=== PATIENT | female | born 1980 | race Caucasian/White ===

== ENCOUNTER 2017-10-11 07:26 | Day surgery (SDC) | payer OTHER ==
[2017-10-10 13:32] VITALS: BMI 28.7
--- NOTE | 2017-10-11 09:01 | HP ---
History & Physical Update - History History: No Change - Physical Physical: No Change - Assessment Assessment: No Change - Plan Plan: No Change (No changes to H&P since 10/06/17 Consent signed and witnessed)
[2017-10-11] MEDS ORDERED: oxyCODONE HCL 5 MG TABLET PO PRN ×2 (09:21→09:38)
[2017-10-11] MEDS ORDERED: PROMETHAZINE HCL 25 MG/1 ML VIAL IVPUSH PRN (09:21)
[2017-10-11] MEDS ORDERED: ONDANSETRON 4 MG/2 ML VIAL IVPUSH PRN ×2 (09:21→09:38)
[2017-10-11] MEDS ORDERED: LACTATED RINGERS SOLUTION 1,000 ML IV SCH (09:30)
[2017-10-11] MEDS ORDERED: MIDAZOLAM HCL 2 MG/2 ML SINGLE DOSE VIAL ONE (09:36)
[2017-10-11] MEDS ORDERED: PROPOFOL 20 ML ONE (09:36)
[2017-10-11] MEDS ORDERED: SUCCINYLCHOLINE CHLORIDE 200 MG/10 ML VIAL ONE (09:37)
[2017-10-11] MEDS ORDERED: IBUPROFEN 800 MG/8 ML IJ IVPB PRN (09:38)
[2017-10-11] MEDS ORDERED: IBUPROFEN 600 MG TABLET (FP) PO PRN (09:38)
--- NOTE | 2017-10-11 09:38 | OP ---
Operative Note - Note: Operative Date: 10/11/17 Pre-Operative Diagnosis: 37yo P1 @ 12 weeks for Elective termination of Operation: Sonograficaly guided suction D&C Post-Operative Diagnosis: Same as Pre-op Surgeon: Dianna Atkinson Anesthesiologist/CAN FILLING ROOM SWEEPER: Priya Richards MD Anesthesia: MAC Specimens Removed: Products of conseption Estimated Blood Loss (mls): 100 Drains, Volume Out (mls): 80 Fluid Volume Replaced (mls): 1,000 Operative Report Dictated: Yes
[2017-10-11] MEDS ORDERED: ceFAZolin SODIUM 1 GM VIAL IVPB ONE (09:45)
[2017-10-11] MEDS ORDERED: ELECTROLYTE-148 SOLN 1,000 ML IV SCH (09:45)
[2017-10-11] MEDS ORDERED: KETOROLAC TROMETHAMINE 30 MG/1 ML VIAL ONE (09:50)
[2017-10-11] MEDS ORDERED: DEXAMETHASONE SOD PHOSPHATE 4 MG/1 ML VIAL ONE (09:50)
[2017-10-11] MEDS ORDERED: LIDOCAINE HCL/PF 2% SDV 5ML VIAL ONE (09:50)
[2017-10-11] MEDS ORDERED: ceFAZolin SODIUM 1 GM VIAL ONE (09:50)
[2017-10-11 14:03] VITALS: BP 104/61; PULSE 86; TEMP 97.8
--- NOTE | 2017-10-12 05:39 | OP ---
DATE OF OPERATION: 10/11/2017 PREOPERATIVE DIAGNOSIS: A 37-year-old para at 8.3 weeks' gestation, prior section, hyperemesis gravidarum. POSTOPERATIVE DIAGNOSIS: A 37-year-old para at 8.3 weeks' gestation, prior section, hyperemesis gravidarum. PROCEDURE PERFORMED: Sonographically-guided suction dilatation and curettage. SURGEON: Dianna Atkinson MD ANESTHESIOLOGIST: Priya Richards MD ANESTHESIA: MAC. SPECIMEN REMOVED: Products of conception. DESCRIPTION OF PROCEDURE: After assuring informed consent, the patient was brought to the operating room. After getting appropriate anesthesia, the patient was placed in the dorsal lithotomy position. The perineum and vagina were prepped and draped in sterile fashion. Selby retractors were placed into the patient's vagina. The anterior cervical lip was articulated with a single-tooth tenaculum. The cervix was gradually dilated with [id number] dilators to accommodate an 18-gauge plastic curette. A plastic curette was placed into the uterus and the suction machine was activated. The rest of the procedure was entirely guided by the marine equipment preservation inspector. It was sonographically observed that the uterus gradually was cleared of products of conception. The uterus was intact. Subsequently, sharp curettage was performed to assure the emptiness of the uterus, and suction was performed once more to clear the uterus of clots and debris. All instruments subsequently were removed from the cervix and vagina. All instrument and sponge counts were correct x2. Estimated blood loss was 100 mL. The patient drained 80 mL of urine and received 1000 mL of IV fluids. She was brought safely to the recovery room. Evelyn [id number]
--- NOTE | 2017-10-13 14:44 | PATH ---
Surgical Pathology Report Patient Name: SABI GRUBER [facility]. Rec. #: [id number] /Age/Gender: 1980 (Age: 37) / F Account: [id number] Location: [facility] SURGICAL Taken: 10/11/2017 Received: 10/11/2017 Reported: 10/13/2017 Physicians: Dianna Atkinson M.D. Specimen(s) Received PRODUCTS OF CONCEPTION Clinical History Elective termination of , 8 weeks gestation of Final Diagnosis UTERINE CONTENTS, EVACUATION: CHORIONIC VILLI CONSISTENT WITH PRODUCTS OF CONCEPTION. Electronically Signed Johnnie Hebert M.D. Gross Description Received in formalin labeled "products of conception," is a 12.0 x 9.5 x 1.6 cm aggregate of lopez-red soft tissue fragments admixed with blood clot. Villous tissue is identified. No definite somatic tissue is identified. A billing customer service representative portion is submitted in one cassette. /10/11/2017 saudi/10/11/2017
== END 2017-10-11 13:30 | disposition home or self-care (01) ==
LOC: JASU-SURG 07:26
PROVIDERS: ATTEND Obstetrics & Gynecology
PROC: 10A07Z6 Abortion of Products of Conception, Vacuum, Via Natural or Artificial Opening (ICD-10-PCS; principal; 2017-10-11 08:30)
DX: Z33.2 Encounter for elective termination of pregnancy (principal)
CPT/HCPCS: 76998-TC; 86850; 86900; 86901; 88305-TC; 94760